=== PATIENT | male | born 1965 | race African-American/Black ===

== ENCOUNTER 2018-10-02 22:38 | Emergency (ER) | payer SELFPAY ==
[~2018-10-02] VITALS: Ht 165.1 cm; Wt 72.8 kg
[~2018-10-02 22:38] MED LIST: HYDR-1348; PVCXPC; [UNRECOGNIZED DRUG - REMARK]
[2018-10-03] MEDS ORDERED: IBUPROFEN 600MG TABLET PO ONE (02:15)
[2018-10-03 02:37] VITALS: BP 127/77
== END 2018-10-03 02:39 | disposition home or self-care (01) ==
LOC: ER 22:38
DX: M67.432 Ganglion, left wrist (principal); F17.210 Nicotine dependence, cigarettes, uncomplicated; F12.90 Cannabis use, unspecified, uncomplicated
CPT/HCPCS: 99281